=== PATIENT | female | born 1995 | race Caucasian/White ===

== ENCOUNTER 2016-12-23 08:00 | Emergency (ER) | payer OTHER ==
[2016-12-23 08:10] VITALS: BP 109/66
--- NOTE | 2016-12-23 08:29 | UC ---
Throat Pain/Nasal Shalom HPI - HPI Summary HPI Summary: SORE THROAT X 1 WEEK + NASAL CONGESTION, COUGH, NO FEVER, NO CHILLS - History of Current Complaint Chief Complaint: UCRespiratory Stated Complaint: SORE THROAT Time Seen by Provider: 12/23/16 08:14 Hx Obtained From: Patient Hx Last Menstrual Period: 12/13/16 Onset/Duration: Gradual Onset, Lasting Days - 5, Still Present Severity: Moderate Cough: Nonproductive Associated Signs & Symptoms: Positive: Nasal Discharge. Negative: Dysphagia, Sinus Discomfort, Fever, Rash - Allergies/Home Medications Allergies/Adverse Reactions: Allergies Allergy/AdvReac Type Severity Reaction Status Date / Time Amoxicillin Allergy Rash Verified 12/23/16 08:10 Penicillins Allergy Rash Verified 12/23/16 08:10 PMH/Surg Hx/FS Hx/Imm Hx Previously Healthy: Yes - Surgical History Surgical History: None - Family History Known Family History: Positive: None Negative: Diabetes - Social History Alcohol Use: Weekly Substance Use Type: None Smoking Status (MU): Never Smoked Tobacco Review of Systems Constitutional: Negative Skin: Negative Eyes: Negative ENT: Sore Throat, Nasal Discharge Respiratory: Cough Cardiovascular: Negative Gastrointestinal: Negative Genitourinary: Negative All Other Systems Reviewed And Are Negative: Yes Physical Exam Triage Information Reviewed: Yes Appearance: Well-Appearing, No Pain Distress, Well-Nourished Vital Signs: Initial Vital Signs Temp 97.8 F 12/23/16 08:05 Pulse 82 12/23/16 08:05 Resp 16 12/23/16 08:05 BP 109/66 12/23/16 08:05 Pulse Ox 100 12/23/16 08:05 Vital Signs Reviewed: Yes Eyes: Positive: Conjunctiva Clear ENT: Positive: Normal ENT inspection, Hearing grossly normal, Pharyngeal erythema, Nasal congestion, Nasal drainage, TMs normal Neck exam: Normal Neck: Positive: Supple, Nontender, No Lymphadenopathy Respiratory Exam: Normal Respiratory: Positive: Chest non-tender, Lungs clear, Normal breath sounds Cardiovascular: Positive: RRR, No Murmur, Pulses Normal Abdominal Exam: Normal Abdomen Description: Positive: Nontender, No Organomegaly, Soft Bowel Sounds: Positive: Present Skin Exam: Normal Throat Pain/Nasal Course/Dx - Differential Dx/Diagnosis Provider Diagnoses: VIRAL PHARYNGITIS Discharge - Discharge Plan Condition: Stable Disposition: HOME Patient Education Materials: Pharyngitis (ED) Referrals: Non Staff,Doctor [Primary Care Provider] - If Needed Additional Instructions: NEGATIVE RAPID STREP VIRAL PHARYNGITIS , NO NEED FOR ABX AT THIS TIEME
== END 2016-12-23 08:33 | disposition home or self-care (01) ==
LOC: UCCORT 08:00
DX: J02.9 Acute pharyngitis, unspecified (principal); Z88.0 Allergy status to penicillin
CPT/HCPCS: 87651; 99211; G0463

== ENCOUNTER 2017-01-08 19:57 | Emergency (ER) | payer OTHER ==
[2017-01-08] MEDS ORDERED: Ibuprofen TAB* 600 MG PO ONE (21:08)
--- NOTE | 2017-01-08 21:44 | UC ---
HPI Febrile Illness - HPI Summary HPI Summary: Patient woke up this morning with a high fever, sob, cough, wheezing, nausea and body aches. denies any neck stiffness or photosensitivity. - History of Current Complaint Chief Complaint: UCGeneralIllness Time Seen by Provider: 01/08/17 21:08 Hx Obtained From: Patient Onset/Duration: Started Hours Ago Timing: Constant Temperature: 104 F Initial Severity: Severe Current Severity: Severe Aggravating Factors: Nothing Alleviating Factors: Nothing Associated Signs and Symptoms: Chills, Cough, Headache, Myalgia, Nausea, SOB - Risk Factors Pseudomonas Risk Factors: Negative Serious Bacterial Infection Risk Factors: Negative - Allergy/Home Medications Allergies/Adverse Reactions: Allergies Allergy/AdvReac Type Severity Reaction Status Date / Time Amoxicillin Allergy Rash Verified 01/08/17 20:59 Penicillins Allergy Rash Verified 01/08/17 20:59 PMH/Surg Hx/FS Hx/Imm Hx Previously Healthy: Yes - Surgical History Surgery Procedure, Year, and Place: wisdom teeth Infectious Disease History: No Infectious Disease History: Denies: Traveled Outside the [place] in Last 30 Days - Family History Known Family History: Positive: None Negative: Diabetes - Social History Alcohol Use: Weekly Substance Use Type: Reports: None Smoking Status (MU): Never Smoked Tobacco Review of Systems Constitutional: Fever, Chills, Fatigue Skin: Negative Eyes: Eye Redness ENT: Sore Throat Respiratory: Shortness Of Breath, Cough Cardiovascular: Negative Gastrointestinal: Other - nausea Genitourinary: Negative Musculoskeletal: Arthralgia, Myalgia Neurological: Headache Psychological: Negative All Other Systems Reviewed And Are Negative: Yes Physical Exam Triage Information Reviewed: Yes Appearance: Ill-Appearing, Pain Distress Vital Signs: Initial Vital Signs Temp 103.1 F 01/08/17 20:49 Pulse 113 01/08/17 20:49 Resp 18 01/08/17 20:49 BP 118/61 01/08/17 20:49 Pulse Ox 99 01/08/17 20:49 Vital Signs Reviewed: Yes Eye Exam: Normal ENT: Positive: Pharyngeal erythema, TM bulging, Tonsillar swelling Dental Exam: Normal Neck: Positive: Supple, Nontender, Enlarged Nodes @ Respiratory: Positive: Chest non-tender, Decreased breath sounds, Stridor, Wheezing, Inspiration Cardiovascular Exam: Normal Cardiovascular: Positive: No Murmur, Pulses Normal, Tachycardia Abdominal Exam: Normal Abdomen Description: Positive: Nontender, No Organomegaly, Soft Bowel Sounds: Positive: Present Musculoskeletal Exam: Normal Musculoskeletal: Positive: Strength Intact, ROM Intact, No Edema Neurological Exam: Normal Neurological: Positive: Alert, Muscle Tone Normal Psychological Exam: Normal Skin Exam: Normal Course/Dx - Course Course Of Treatment: hx obtained, exam performed ,meds reviewed, rapid flu and strep obtained, UA obtained Chest xray negative. - Febrile Illness Differential Diagnoses: Bacteremia, Cellulitis, Fever of Unknown Origin, Meningitis, Pneumonia, Sepsis - Diagnoses Clinic Provider Diagnoses: fever. myalgia. lymphadenopathy Discharge - Discharge Plan Condition: Stable Disposition: HOME Patient Education Materials: Fever in Adults (ED) Referrals: Non Staff,Doctor [Primary Care Provider] - Additional Instructions: You were tested for UTI, STREP, FLU, and pnuemonia, all were negative. Continue with fluid and rest, Ibuprofen as neede for fever. If you wake up with fever greater than 102 tomorrow and you are still feeling lousy, report to ER for further evaluation and bloodwork.
--- NOTE | 2017-01-08 22:33 | RAD ---
INDICATION: Fever and shortness of breath COMPARISON: None TECHNIQUE: PA and lateral views of the chest were obtained. FINDINGS: The heart and mediastinum are normal in size and contour. The lungs are grossly clear. There is no evidence of large pleural effusion. Visualized bones are normal for the patient's age. There is no radiographic evidence of free air beneath the diaphragm IMPRESSION: No radiographic evidence of acute cardiopulmonary disease.
[2017-01-08 22:49] VITALS: BP 117/71
== END 2017-01-08 23:00 | disposition home or self-care (01) ==
LOC: UCCORT 19:57
DX: R50.9 Fever, unspecified (principal); M79.1 Myalgia; R59.1 Generalized enlarged lymph nodes; Z88.0 Allergy status to penicillin
CPT/HCPCS: 71020; 81003; 87502; 87651; 99212; A9270-GY; G0463